=== PATIENT | female | born 1945 | race Asian ===

== ENCOUNTER 2016-06-13 09:57 | Inpatient (IN) | payer MEDICARE, OTHER ==
[~2016-06-13] VITALS: Ht 167.6 cm; Wt 61.0 kg
--- NOTE | 2016-06-13 10:21 | NUR ---
PT BIB [facility] FOR GENERALIZED WEAKNESS, PER MEDIC PT HAS NO PAST MEDICAL HISTORY AND IS NOT ON ANY HOME MEDS, MEDIC REPORTS FAMILY IS CONCERNED DUE TO PT NOT "TAKING HER WALK TODAY, USUALLY THE PATIENT TAKES A MORNING WALK EVERY DAY" PER MEDIC PT HAS HAD GENERALIZED WEAKNESS X 3 WEEKS AND WAS SEEN BY PMD YESTERDAY WITH DIAGNOSIS OF FLU LIKE SX, BLOOD GLUCOSE WEIGH BOX TENDER 101, PT AAOX4, RESP EVEN BUT SLIGHTLY TACHYPNEAC, PT REPORTS 6/10 PAIN TO LEFT HIP, DENIES RECENT TRAUMA FALL OR INJURY, PT HAS COUGH WITH YELLOW COLORED PHLEGM, PT IN NO ACUTE DISTRESS, PENDING MSE, WILL CONTINUE TO MONITOR
--- NOTE | 2016-06-13 10:40 | NUR ---
PT FRIEND AT BEDSIDE, DR. PONCE AT BEDSIDE FOR MSE, PER FRIEND "SHE DID NOT EAT FOR 2 DAYS SINCE SHE HAD TO GO SEE THE DOCTOR YESTERDAY, SHE HAS A COUGH VERY MUCH X 3 WEEKS"
--- NOTE | 2016-06-13 10:55 | NUR ---
LAB AT BEDSIDE FOR BLOOD DRAW
[2016-06-13 11:18] LABS: BASOPHIL % 0.3 % (0-2)
[2016-06-13 11:25] LABS: CALCIUM 8.2 mg/dL (8.5-10.1); CARBON DIOXIDE 30.1 mmol/L (21-32); CHLORIDE SERUM 103 mmol/L (98-107); GLUCOSE SERUM 117 mg/dL (74-106); POTASSIUM SERUM 3.6 mmol/L (3.5-5.1); SODIUM SERUM 140 mmol/L (136-145)
[2016-06-13 11:29] LABS: PLATELET COUNT 92 x10^3mcL (130-400); RED CELL DISTRIBUTION WIDTH 14.9 % (11.5-14.5)
--- NOTE | 2016-06-13 11:30 | NUR ---
BREATHING TREATMENT COMPLETED AT THIS TIME, PT O2 SAT 98% AT THIS TIME ON RA
--- NOTE | 2016-06-13 11:33 | NUR ---
PER PT HER EMERGENCY CONTACT IS HER GRANDSON RONALDO
[2016-06-13 11:41] LABS: ALKALINE PHOSPHATASE 68 U/L (46-116); ALT/SGPT 13 U/L (14-59); AMYLASE 86 U/L (25-115); AST/SGOT 25 U/L (15-37); BILIRUBIN TOTAL 2.5 mg/dL (0.20-1.00); CHOLESTEROL 143 mg/dL (<200); LIPASE 95 IU/L (73-393); T4(THYROXINE) 5.9 ug/dL (4.7-13.3); TOTAL PROTEIN, SERUM 6.8 g/dL (6.4-8.2)
[2016-06-13 11:42] LABS: ALBUMIN 2.7 g/dL (3.4-5.0); HDL CHOLESTEROL 73 mg/dL (40-60)
--- NOTE | 2016-06-13 11:47 | NUR ---
MEDICATION ADMINISTERED PER MD ORDER, PLEASE SEE EMAR, PT TOLERATED WELL
--- NOTE | 2016-06-13 12:08 | NUR ---
2 ATTEMPTS IN PERFORMING STRAIGHT CATH WITH ASEPTIC TECHNIQUE BUT NO URINE RETURN, DR. PONCE MADE AWARE
--- NOTE | 2016-06-13 12:58 | NUR ---
STRAIGHT CATH PERFORMED PER DR. PONCE'S ORDER WITH ASEPTIC TECHNIQUE, CLEAR DARK YELLOW URINE COLLECTED, PT TOLERATED WELL, PT BACK IN A POSITION OF COMFORT IN BED, RESP EVEN AND UNLABORED, PT IN NO ACUTE DISTRESS, VSS, URINE DIPPED AND SENT TO LAB, CALL LIGHT WITHIN REACH, WILL CONTINUE TO MONITOR PT
[2016-06-13 13:26] LABS: microscopic required? YES; urine erythrocyte 2+ (NEGATIVE)
--- NOTE | 2016-06-13 14:34 | NUR ---
PT RESTING IN BED IN A POSITION OF COMFORT WITH EYES CLOSED, RESP EVEN AND UNLABORED, VISIBLE RISE AND FALL OF CHEST NOTED, PT IN NO ACUTE DISTRESS, IVF CURRENTLY INFSING AT THIS TIME, CALL LIGHT WITHIN REACH, WILL CONTINUE TO MONITOR
--- NOTE | 2016-06-13 15:01 | NUR ---
[facility]SA SWAB COLLECTED AND SENT TO LAB
--- NOTE | 2016-06-13 15:38 | NUR ---
REPORT GIVEN TO RENEE GUADARRAMA TELE FLOOR TO ASSUME CARE OF PT AFTER TRANSPORT
[2016-06-13 15:42] LABS: FREE T4 1.92 ng/dL (0.76-1.46); FREE THYROXINE INDEX 2.5 ug/dL (1.4-4.5); T4(THYROXINE) 6.2 ug/dL (4.7-13.3)
[2016-06-13 15:43] LABS: T3 TOTAL 0.69 ng/mL
--- NOTE | 2016-06-13 15:45 | NUR ---
RECEIVED PT FROM ED VIA [facility]. CAME IN DUE TO WEAKNESS, COUGH AND UNABLE TO SLEEP FOR 3 WEEKS. AAOX4. C/O THROBBING HEADACHE. STATED THAT SHE HAS PRODUCTIVE COUGH AT TIMES, ABLE TO EXPECTORATE YELLOW SPUTUM. DENIES CHEST PAIN/PRESSURE, NSR ON THE MONITOR. DENIES ABDOMINAL DISCOMFORT AT THIS TIME. URINE INCONTINENT. GENERALIZED WEAKNESS NOTED. SIDE RAILS UPX2. CALL LIGHT ON REACH. PRIMARY NURSE THIERRY AT BEDSIDE
[2016-06-13 16:09] VITALS: BP 136/83
[2016-06-13 16:12] VITALS: Ht 167.6 cm; Wt 61.0 kg
--- NOTE | 2016-06-13 16:42 | NUR ---
CAROTID US IN PROGRESS. PATIENT NOTED TO HAVE VERY FREQUENT COUGH WITH YELLOWISH SPUTUM. IVF INFUSING WELL ORDERED. WILL CONTINUE TO [facility]. PATIENT IS NPO AT THIS TIME.
[2016-06-13 17:44] VITALS: BP 136/83
--- NOTE | 2016-06-13 18:24 | NUR ---
PATIENT REMAINS IN BED. CAROTID US DONE AND US OF ABD AND RENAL INCLUDING BLADDER DONE. PATIENT CONTINUES TO COUGH. I.S. AT BEDSIDE. SCD'S IN PLACE. PATIENT TO HAVE A CT OF HEAD DONE THIS EVENING. WILL CONTINUE TO MONITOR.
[2016-06-13 18:45] LABS: BILIRUBIN DIRECT 0.85 mg/dL (0.0-0.2); BILIRUBIN TOTAL 1.83 mg/dL (0.20-1.00)
--- NOTE | 2016-06-13 18:53 | NUR ---
PATIENT IS SITTING UP IN BED EATING DINNER TRAY AT THIS TIME.
--- NOTE | 2016-06-13 19:56 | NUR ---
AWAKE AND ALERT, EATING DINNER. BECAME SHORT OF BREATH WHEN TALKING. ON 2LPM OF O2 VIA NC. O2 SAT 96-97%. ON HIGH FOWLERS. SCDS TO BLE. IVF OF NS AT 90ML/HR. GENERALIZED WEAKNESS. LUNG SOUNDS DIMINISHED TO BASES. GRANDDAUGHTER AT BEDSIDE.
--- NOTE | 2016-06-13 21:13 | NUR ---
IV TO LEFT AC INFILTRATED. REMOVED. NEW IV, 20 G INSERTED TO RIGHT FOREARM.
--- NOTE | 2016-06-13 21:15 | NUR ---
NEW ORDER FOR CT ABD/PELVIS WITH IV CONTRAST. NEW 20G IV INSERTED TO RIGHT FOREARM, PT DENIES HAVING ALLERGIES TO SEAFOOD OR IODINE.
[2016-06-13 21:36] VITALS: BP 140/66
--- NOTE | 2016-06-13 22:51 | NUR ---
BACK FROM CT, PLACED BACK ON IVF OF NS AT 90ML/HR.
--- NOTE | 2016-06-13 23:28 | NUR ---
EYES CLOSED, BREATHING EVEN AND UNLABORED. UPPER SIDE RAILS KEPT RAISED, BED IN LOWEST POSITION. CALL LIGHT WITHIN EASY REACH.
[2016-06-14] VITALS (7 sets, daily range): BP systolic 103–172; BP diastolic 43–85
--- NOTE | 2016-06-14 02:34 | NUR ---
HAVING NAUSEA AND VOMITTED. ZOFRAN 4MG ADMINISTERED SLOW IVP. STATED HAVING SOME HEAVINESS TO CHEST, PT HAVING EXPIRATORY WHEEZES, PAGED RESP THERAPIST. RT. VITAL SIGNS, BP 172/85, O2 SAT 99% ON 2LPM OF O2 VIA NC, HI 77, 97.1F, 20/MIN. SINUS RHYTHM ON TELE, ASSISTED TO BEDSIDE COMMODE. VOIDED WELL. RESP THERAPIST CAME IN TO PROVIDE BREATHING TREATMENT.
--- NOTE | 2016-06-14 02:52 | NUR ---
PAGED DR. PATEL
--- NOTE | 2016-06-14 03:29 | NUR ---
DR PATEL AWARE OF BP 166/82. NO FURTHER ORDERS AT THIS TIME. WILL CONTINUE TO MONITOR.
--- NOTE | 2016-06-14 03:37 | NUR ---
DR. PATEL CALLED BACK, INFORMED BP WAS 172/85, RECHECKED 166/82. NO NEW ORDERS AT THIS TIME.
--- NOTE | 2016-06-14 03:38 | NUR ---
LATE ENTRY: 0253H - STATED FEELING BETTER. HOB KEPT ELEVATED 30 DEG.
--- NOTE | 2016-06-14 05:59 | NUR ---
EYES CLOSED, BREATHING EVEN AND UNLABORED. CALL LIGHT WITHIN EASY REACH.
[2016-06-14 06:34] LABS: CALCIUM 7.9 mg/dL (8.5-10.1); CHLORIDE SERUM 109 mmol/L (98-107); GLUCOSE SERUM 147 mg/dL (74-106); MAGNESIUM 1.7 mg/dL (1.8-2.4); SODIUM SERUM 143 mmol/L (136-145)
[2016-06-14 06:41] LABS: BASOPHIL % 0.3 % (0-2); RED CELL DISTRIBUTION WIDTH 14.5 % (11.5-14.5)
[2016-06-14 06:42] LABS: PLATELET COUNT 84 x10^3mcL (130-400)
--- NOTE | 2016-06-14 08:00 | NUR ---
PATIENT IS AWAKE ALERT AND ORIENTED X4. TELE 13 SR. PULSES EQUAL BILATERAL NO EDEMA NOTED. SCDS IN PLACE. LUNGS CTA, NON PRODUCTIVE DRY COUGH. BOWEL SOUNDS ACTIVE IN ALL 4 QUADRANTS NO COMPLAINTS OF N/V. BRP WITH ASSIST, INCONTINENT AT TIMES. GENERALIZED WEAKNESS. SKIN IS CDI. NO COMPLAINTS OF PAIN AT THIS TIME. IV TO THE RFA, SITE WNL. PT IS CALM AND COOPERATIVE WITH CARE. CALL LIGHT IN REACH WILL CONTINUE TO MONITOR.
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
--- NOTE | 2016-06-14 15:12 | NUR ---
PT ASLEEP IN BED EVEN UNLABORED RESPIRATIONS, NO SIGNS OF DISTRESS. CALL LIGHT IN REACH.
--- NOTE | 2016-06-14 15:33 | NUR ---
DR BALBUENA IN TO SEE PT, INFORMED HER OF THE RISKS ASSOCIATED WITHTHE PROCEDURE. ALL QUESTIONS ANSWERED. PT VERBALIZED UNDERSTANDING. CONSENTS SIGNED AND IN THE CHART.
--- NOTE | 2016-06-14 19:01 | NUR ---
PT RESTING COMFORTABLY IN BED NO SIGNS OF DISTRESS CALL LIGHT IN REACH FAMILY AT BEDSIDE. WILL CONTINUE TO MONITOR.
--- NOTE | 2016-06-14 19:45 | NUR ---
AAO X 4. SPEECH CLEAR AND APPROPRIATE. HOB ELEVATED 45 DEG. UPPER SIDE RAILS IN RAISED POSITION. CALL LIGHT WITHIN EASY REACH. BREATHING EVEN AND UNLABORED. BUT STATED HAVING SHORTNESS OF BREATH ON EXERTION. RR 18/MIN. O2 SAT 98% ON ROOM AIR. SINUS RHYTHM ON TELE. IVF OF NS AT 90ML/HR. DENIES HAVING PAIN AT THIS TIME.
--- NOTE | 2016-06-14 20:33 | NUR ---
PT EVAL NOTES [id number] Patient is a 70 (possibly 89 y/o per patient) admitted with gen weakness. 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 Prec: Fall risk, monitor vitals S: Patient cleared by RN, and patient agreeable to PT POC as best able. Denied any pain. O: Patient appears a/o, educated on PT POC/safety with fair return understanding. BP monitored for orthostatics supine 110/58/75, sit 119/65/72, stand 120/65/75, 3L O2 via NC with SpO2 96% with noted SOB at rest and upon exertion, educated on PLB/ECT with fair return understanding. Bed mobility supine<>sit/rolling: mod assist Transfers sit<>stand: mod assist Gait: 5 sidesteps w/ pregait activity as bedside. Patient demo unsteady gait with limited activity hesham. Patient assisted BTB with mod assist, call light in hand, all lines in place, nursing aware. A: PT eval completed. Patient presents with gen weakness and gait instability. Demo fair activity hesham, fall risk, and fatigues quickly with noted SOB. Patient will benefit from further skilled PT, good rehab potential. Recomm back home to [facility] with cont caregiver assist, already has all DME at home, and HHPT for home safety eval as needed. P: Patient to be seen per PT POC, once daily 5x/wk x 1 wk for ther ex/activity, gait trng, and patient/fam/caregiver edu. Cont with PT POC as hesham/safe. [id number], [id number] FR 14
--- NOTE | 2016-06-15 00:40 | NUR ---
EYES CLOSED, BREATHING EVEN AND UNLABORED. HOB KEPT ELEVATED 30 DEG. UPPER SIDE RAILS KEPT RAISED, CALL LIGHT WITHIN EASY REACH. NO COUGHING NOTED AT THIS TIME. SINUS RHYTHM ON TELE.
--- NOTE | 2016-06-15 03:55 | NUR ---
ASSISTED TO BEDSIDE COMMODE BY JOHNNIE PAEZ. PT PASSED MODERATE AMOUNT OF FORMED STOOL.
[2016-06-15 05:50] LABS: BASOPHIL % 0.1 % (0-2)
[2016-06-15 05:55] LABS: PLATELET COUNT 96 x10^3mcL (130-400)
[2016-06-15 06:09] LABS: CALCIUM 8.6 mg/dL (8.5-10.1); CARBON DIOXIDE 26.4 mmol/L (21-32); CHLORIDE SERUM 110 mmol/L (98-107); CREATININE SERUM 1.3 mg/dL (0.6-1.0); GLUCOSE SERUM 80 mg/dL (74-106); MAGNESIUM 1.8 mg/dL (1.8-2.4); PHOSPHOROUS 3.3 mg/dL (2.5-4.9); POTASSIUM SERUM 4.3 mmol/L (3.5-5.1); SODIUM SERUM 145 mmol/L (136-145)
[2016-06-15 06:12] VITALS: BP 110/47
--- NOTE | 2016-06-15 06:18 | NUR ---
EYES CLOSED, BREATHING EVEN AND UNLABORED. OCCASSIONAL COUGHING NOTED. IVF OF NS AT 90ML/HR. HOB KEPT ELEVATED 30 DEG.
--- NOTE | 2016-06-15 07:45 | NUR ---
RECIEVED PT. AWAKE,ALERT NOTED OLD IV ACCESS IN RT. FA WAS INFILTRATED . NOTED REDNESS AND RASHES TO AMITA. UPPER AND LOWER EXT.THIGH ,BUTTOKS ,CHEST AND BACK.DR. MUIR NOTIFIED AND MADE AWARE.
--- NOTE | 2016-06-15 08:00 | NUR ---
PT. ABLE TO AMBULATE IN THE BATHROOM W/ ASSIST. W/ WALKER GASPER. WELL. UP IN CHAIR AT BEDSIDE.CALL LIGHT W/ IN REACH. DENIES ANY PAIN NO SOB NOTED. CONT. IV FLUIDS ORDERED.
--- NOTE | 2016-06-15 08:20 | NUR ---
DR ARIAS CAME WITH OTHER MEDICAL STAFF AND MADE MORNING ROUNDS AND UPDATED PATIENT PLAN OF CARE
--- NOTE | 2016-06-15 08:45 | NUR ---
PATIENT KEPT NPO TODAY FOR EGD. DR. Tapan BALBUENA CAME IN AND SPOKE TO PATIENT REGARDING THE EGD PROCEDURE AND PATIENT VERBALIZED UNDERSTAND OF THE PROCEDURE TO BE DONE. PATIENT SIGNED CONSENT.
--- NOTE | 2016-06-15 10:00 | NUR ---
PATIENT WENT DOWN FOR THE EGD VIA BED.
--- NOTE | 2016-06-15 10:00 | NUR ---
RE- INSERTED NEW IV ACCESS #24 GAUGE NEEDLE IN LEFT HAND DONE IN GI LAB IN GI LAB.
--- NOTE | 2016-06-15 11:00 | NUR ---
WBC 13.[address] MUIR W/ ORDERS RECIEVED.
--- NOTE | 2016-06-15 11:45 | NUR ---
PATIENT BACK FROM EGD VIA BED. AWAKE AND ALERT. DENIES ANY PAIN. PATIENT MADE COMFORTABLE IN BED. ON O2 AT 2L ON NC. VITAL SIGNS ARE STABLE. NO ACUTE DISTRESS NOTED. S/P EGD RESULTS ARE NO VARICES. SCARRING PREPYLORIC NEGATIVE RESULTS.
--- NOTE | 2016-06-15 11:57 | NUR ---
PATIENT ALERT AND ORIENTED X4. NOTED IV ACCESS WAS INFILTRATED IN THE RIGHT FOREARM. REDNESS NOTED ON HER [place] AND BILATERAL UPPER EXTREMITIES AND UPPER LOWER EXTREMITIES. PULSES PALPABLE AND NO EDEMA NOTED. CLEAR LUNG SOUNDS AND PATIENT HAS A NONPRODUCTIVE COUGH. REQUIRES ASSISTANCE WITH ADL'S. AMBULATES WITH ASSISTANCE WITH WALKER AND REPORTS GENERALIZED WEAKENESS. PATIENT REPORTS NUMBNESS ON BOTH HANDS AND HEAD. PATIENT IS ABLE TO MOVE BILATERALLY UPPER EXTREMITY WITYH GOOD HAND STITCH WELDER. NO RESOPIRATORY DISTRESS NOTED. WILL CONTINUE PLAN OF CARE.
[2016-06-15 13:50] VITALS: BP 123/49
[2016-06-15 17:39] VITALS: BP 109/44
--- NOTE | 2016-06-15 17:47 | NUR ---
PT. ABLE TO AMBULATE IN THE BATHROOM AND VOIDING WELL.W/ ASSIST. W/ WALKER DENIES ANY PAIN NOT ACUTE DISTRESS NOTED.CALL LIGHT W/ IN REACH.
--- NOTE | 2016-06-15 19:33 | NUR ---
AAO X 4. SPEECH CLEAR AND APPROPRIATE. HOB ELEVATED 30 DEG. CALL LIGHT WITHIN EASY REACH. BREATHING EVEN AND UNLABORED ON ROOM AIR. NO COUGHING NOTED AT THIS TIME. RASH LIKE REDNESS TO MID ARMS, THIGH, GROIN AND BUTTOCKS, DENIES HAVING ITCHINESS, BUT STATED HAVING PAIN TO AREAS OF REDNESS. AMBULATORY WITH ASSISTANCE. IVF OF NS AT 90ML/HR.
--- NOTE | 2016-06-15 20:39 | NUR ---
DECREASED IVF TO 30ML/HR PER [facility] ORDERS
[2016-06-15 21:11] VITALS: BP 125/68
--- NOTE | 2016-06-16 00:52 | NUR ---
EYES CLOSED, BREATHING EVEN AND UNLABORED. NO COUGHING NOTED AT THIS TIME. HOB KEPT ELEVATED 30 DEG. CALL LIGHT WITHIN EASY REACH. SINUS RHYTHM ON TELE.
--- NOTE | 2016-06-16 04:47 | NUR ---
STILL WITH REDNESS TO MID ARM, BUTTOCKS, THIGHS. PHOTODOCUMENTED. DENIES HAVING ITCHINESS.
--- NOTE | 2016-06-16 04:47 | NUR ---
DISCONTINUED TELEMETRY PER ORDER, TELEMETER RETURNED TO MONITOR STATION.
[2016-06-16 05:31] VITALS: BP 123/60
--- NOTE | 2016-06-16 06:08 | NUR ---
EYES CLOSED, EASILY AWAKENED. BREATHING EVEN AND UNLABORED. IVF OF NS AT 30ML/HR.
[2016-06-16 07:06] LABS: BASOPHIL % 0.1 % (0-2)
[2016-06-16 07:08] LABS: PLATELET COUNT 102 x10^3mcL (130-400)
[2016-06-16 07:12] LABS: CALCIUM 8.5 mg/dL (8.5-10.1); CARBON DIOXIDE 26.3 mmol/L (21-32); CHLORIDE SERUM 111 mmol/L (98-107); CREATININE SERUM 1.1 mg/dL (0.6-1.0); GLUCOSE SERUM 153 mg/dL (74-106); POTASSIUM SERUM 4.8 mmol/L (3.5-5.1); SODIUM SERUM 143 mmol/L (136-145)
--- NOTE | 2016-06-16 07:19 | NUR ---
EYES CLOSED, EASILY AWAKENED. STATED STILL FEELING WEAK. BREATHING EVEN AND UNLABORED. ASKED ASSISTANCE TO LEAVE MESSAGE TO HER GRANDSON TO CALL HER OR HOSPITAL. ENDORSED TO NURSE LEY
--- NOTE | 2016-06-16 07:50 | NUR ---
AT 0720 - RECEIVED PATIENT FROM NIGHT NURSE. PATIENT AWAKE, ALERT AND APPEARS ORIENTED. NO C/O PAIN BUT PATIENT C/O GENERALIZED WEAKNESS. IV INFUSING NS AT 30ML. AT 0730 - SAT UP IN BED FOR BREAKFAST. RECEIVED CALL FROM PATIENT'S GRAND-SON - RONALDO HOBBS TEL: [phone] UPDATED ON PATIENT, WILL REQUEST DOCTOR TO CALL HIM.
[2016-06-16 10:00] VITALS: BP 150/72
--- NOTE | 2016-06-16 12:19 | NUR ---
AT 0815 - SEEN BY DR SEPULVEDA DURING MORNING ROUNDS. MEDICAL TEAM DOCTORS, IRASEMA FERRIS AND MYSELF PRIMARY NURSE ALSO PRESENT. DR YORK SPOKE WITH PATIENT THI. PLAN TO STAY IN HOSPITAL TODAY AND PLAN TO DC HOME TOMORROW. DR KWON GIVEN PATIENT'S GRAND-SON'S TELEPHONE NUMBER DESCRIBED ABOVE. AT 1100 - PATIENT SITTING OUT OF BED IN CHAIR. AT 1135 - HAS BEEN UP, AMBULATED WITH PHYISCAL THERAPY. AT 1210 - PATIENT BACK IN BED.
--- NOTE | 2016-06-16 13:34 | NUR ---
RECEIVED CALL FROM PATIENT'S GRAND-SON. DR KWON ON UNIT AT THE TIME; HE SPOKE WITH GRAND-SON PER PHONE.
--- NOTE | 2016-06-16 14:46 | NUR ---
PT NOTES TIME: 9227-4532 TE5',TA10',GT23',PVE((1)STANDBY SAFETY) S:CHART REVIEWED AND CLEARED FOR PT BY RN. PATIENT HAS JUST BEEN ASSISTED BACK TO BE BY NURSING. PATIENT EAGER TO PARTICIPATE IN THERAPY, IV LINE INTACT. NO PAIN OR SOB EXPRESSED BY PATIENT. O:BED: MIN SUPINE<->SIT VIA LOG ROLL WITH VC'S AND TC'S FOR PROPER SEQUENCING AND PACING. TRANSFER: MIN SIT<->STAND WITH FWW, 1 REMINDER ON PROPER HAND PLACEMENT AND PUSH OFF FROM BED/FWW. NO DIZZINESS EXPRESSED OR INCREASED PAIN. GAIT: MIN/CGA FWW 22'x2 WITH 1 SEATED REST BREAK FOR ENERGY CONSERVATION. NO PAIN EXPRESSED, ONLY FATIGUE 7/10 BASED ON CHIARA RPE SCALE. PATIENT MAINTAINS SLOW, BUT STEADY ROXANA WITH NBOS, SHORTEN STEP LENGTH AND MILD KYPHOTIC POSTURE. PATIENT ABLE TO CORRECT POSTURE WITH VC'S PROVIDED. 2ND PT STAFF ON STANDBY FOR SAFETY DURING GAIT (PVE). TE: SEATED KNEE EXT/FLEX WITH ANKLE DF/PF, SCAPULAR RETRACTION/PROTRACTION IN SITTING TO IMPROVE SITTING POSTURE (ALL TOLERATED) PATIENT EDUCATED ON HEP, PACING, ENERGY CONSERVATION, TRANSFERS AND SAFETY WITH VERBAL UNDERSTANDING. PATIENT RETURNED SAFELY AND MADE COMFORTABLE IN BED WITH ALL LINES INTACT, TRAY AND CALL LIGHT IN REACH. PATIENT COOPERATIVE AND APPRECIATIVE OF PT CARE, RN MADE AWARE. P:CONT WITH POC, PROGRESS DISCUSSED WITH PRIMARY PT.
--- NOTE | 2016-06-16 17:45 | NUR ---
PATIENT BACK FROM RADIOLOGY POST CT OF CHEST. SITTING UP IN BED FOR DINNER.
[2016-06-16 18:00] VITALS: BP 117/57
--- NOTE | 2016-06-16 19:02 | NUR ---
PATIENT AWAKE, ALERT AND ORIENTED. NO C/O PAIN. IV REMAINS AT 30ML/HR NS. EATING WELL. WILL ENDORSE CARE TO NIGHT NURSE.
--- NOTE | 2016-06-16 20:00 | NUR ---
RECEIVED PT IN BED, ALERT AND ORIENTED. ABLE TO VERBALIZE NEEDS. DENIES HEADACHE/DIZZINESS. RESP. EVEN AND UNLABORED. ON ROOM AIR, LUNGS SOUNDS SIGHTLY DIM. ON RT PROTOCOL. NO DISTRESS NOTED. NO TELE , DENIES CHEST PAIN OR PRESSURE. IVF NS AT 30ML/HR, INTACT AND INFUSING VIA LT HAND, SITE CLEAR. REDDISH RASH ALL OVER , KIMI. BUE. DENIES ITHCHING . NEEDS ASSIST. WITH AMBULATION. VOIDING FREELY. ASSISTED WITH HS CARE. CALL LIGHT WITHIN REACH. WILL CONTINUE TO MONITOR.
[2016-06-16 21:37] VITALS: BP 147/58
--- NOTE | 2016-06-17 02:23 | NUR ---
SLEEPING, EASILY AROUSABLE. NO DISTRESS NOTED. WILL CONTINUE TO MONITOR.
[2016-06-17 05:55] VITALS: BP 140/71
--- NOTE | 2016-06-17 06:17 | NUR ---
AFEBRILE AND VITAL SIGNS STABLE. DENIES CP OR ANY DISCOMFORT. SLEPT WELL. NO COMPLAINTS NOTED. RESP. EVEN AND UNLABORED. NO DISTRESS NOTED. IV SITE LEAKING, DISCONT. NEW IV SITE RESTARTED ON LT HAND WITH #24G ANGIO. NS AT 30ML/HR, INFUSING. KEPT COMFORTABLE. HAD X1 LG SOFT BM. WILL CONTINUE TO MONITOR.
[2016-06-17 06:37] LABS: CALCIUM 8.7 mg/dL (8.5-10.1); CARBON DIOXIDE 26.2 mmol/L (21-32); CHLORIDE SERUM 109 mmol/L (98-107); GLUCOSE SERUM 102 mg/dL (74-106); MAGNESIUM 1.9 mg/dL (1.8-2.4); PHOSPHOROUS 3.3 mg/dL (2.5-4.9); POTASSIUM SERUM 4.4 mmol/L (3.5-5.1); SODIUM SERUM 141 mmol/L (136-145)
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
[2016-06-17 07:42] LABS: BASOPHIL % 0.7 % (0-2); RED CELL DISTRIBUTION WIDTH 14.4 % (11.5-14.5)
[2016-06-17 07:43] LABS: PLATELET COUNT 103 x10^3mcL (130-400)
--- NOTE | 2016-06-17 09:06 | NUR ---
ABLE TO TAKE ALL AM PO MEDS WITHOUT SWALLOW DELAY, N&V, DENIES SOB, CALL LIGHT WITHIN REACH, WILL CONTINUE TO PROVIDE CARE.
[2016-06-17 09:22] VITALS: BP 170/77
--- NOTE | 2016-06-17 11:40 | NUR ---
FAM AT BEDSIDE. PT C/O COUGH, ANTITUSSIVE ADMIN ORDERED, DENIES SOB, O2 SATS 97% ORA, RESPIRATORY THERAPY ON THE CASE. CALL LIGHT WITHIN REACH, WILL CONTINUE TO PROVIDE CARE.
--- NOTE | 2016-06-17 13:11 | NUR ---
ABLE TO TOLERATE LUNCH WITHOUT GI DISTRESS, CALL LIGHT WITHIN REACH, WILL CONTINUE TO PROVIDE CARE.
[2016-06-17 14:13] VITALS: BP 111/44
--- NOTE | 2016-06-17 14:50 | NUR ---
PT NOTES TIME: [id number] TE10'.TA13',GT15',PVE((1)1ST ATTEMPT) S:CHART REVIEWED AND CLEARED FOR PT BY RN. PATIENT IN HIGH SAN POSITION RESTING WITH CM (LEEANNE) AT BEDSIDE SPEAKING WITH PATIENT. WILL RETURN AT LATER TIME. RETURNED TO PATIENTS ROOM AND PATIENT HAVING BREATHING TREATMENT (PVE). RETURNED TO PATIENTS ROOM TO RESUME THERAPY AND IS EAGER TO PARTICIPATE IN THERAPY. NO PAIN EXPRESSED, BUT STATES, "I'M SO WEAK AND TIRED, I DIDN'T SLEEP WELL LAST NIGHT". PATIENT HOWEVER STILL EAGER TO PARTICIPATE. O:BED: MIN SUPINE<->SIT VIA LONG SIT PIVOT TRANSFER WITH VC'S PROVIDED TO SEQUENCING AND COMPLETE. BP 112/50, HR 85 SPO2 ON RA 92% TRANSFER: MIN SIT<->STAND WITH FWW AND FEW REMINDERS ON PROPER HAND PLACEMENT/SEQUENCING WITH CORRECT HAND PLACEMENT DURING PUSHOFF. BP IN SITTING. GAIT: MIN/CGA FWW 20'x2 WITH 1 SEATED REST BREAK FOR ENERGY CONSERVATION. BP IN SITTING POST GAIT 112/54, HR 85 SPO2 ON RA 94%. TE: ANKLE ROM IN ALL PLANES, UE ROM IN ALL PLANES, GLUTE SETS, SEATED KNEE EXT/FLEX WITH MARCHES. (ALL TOLERATED TO IMPROVE CIRCULATION AND STRENGTH/ENDURANCE). OCCASIONAL REMINDERS ON PROPER EXECUTION DURING HEP. PATIENT EDUCATED ON PROPER TRANSFER SEQUENCING, POSTURAL AWARENESS, ENERGY CONSERVATION WITH GOOD RETURN DEMONSTRATION. PATIENT RETURNED SAFELY AND MADE COMFORTABLE IN BED WITH ALL LINES INTACT, TRAY AND CALL LIGHT IN REACH. PATIENT COOPERATIVE AND APPRECIATIVE OF PT CARE, RN MADE AWARE. P:CONT WITH POC, PROGRESS DISCUSSED WITH PRIMARY PT.
--- NOTE | 2016-06-17 19:12 | NUR ---
ABLE TO WORK WITH PHYSICAL THERAPY, HAS BEEN TOLERATING MEALS WITHOUT GI DISTRESS, CONTINUES TO C/O COUGH, ANTITUSSIVE ADMIN ORDERED, RT IS ON THE CASE, PT WOULD LIKE TO TRANSFER TO SNF ONCE DISCHARGED, NO OTHER SIGNIFICANT CHANGES NOTED, WILL ENDORSE CARE TO NIGHT NURSE.
--- NOTE | 2016-06-17 19:50 | NUR ---
PT RESTING IN BED ON RT SIDE, AAOX4 WITH NO C/O PAIN AT THIS TIME. BREATH SOUNDS CLEAR BILATERALLY. ABDOMEN SOFT WITH ACTIVE BOWEL SOUNDS. PULSES PRESENT WITH NO EDEMA NOTED. REDNESS NOTED TO PERIAREA AND BUE. CALL LIGHT WITHIN REACH.
[2016-06-17 20:39] VITALS: BP 107/52
--- NOTE | 2016-06-17 22:00 | NUR ---
REPORT TAKEN FROM RENEE COELLO, ALL CARE ENDORSSED.
--- NOTE | 2016-06-17 22:48 | NUR ---
PT IS RESTING IN BED VERBALLY ARROUSSABLE. PT IS A/O X4Q. CLEAR SPEECH. FOLLOWS COMAND. RESP IS EVEN AND UNLABORED.RA. BOWEL SOUND ACTIVE X4Q. NO EDEMA NOTED. SELF TURNS. BSC WITH MINIMAL ASSISST. SAFETY IN PLACE. CALL LIGHT WITHIN REACH. WILL CONTINE TO MONITOR.
--- NOTE | 2016-06-17 22:58 | NUR ---
ALL MEDS GIVEN. PT GASPER WELL. WILL CONTINUE TO MONITOR.
--- NOTE | 2016-06-18 02:06 | NUR ---
RECHECK WITH PT. PT IS SLEEPING AT THIS TIME. NO DISTRESS NOTED. WILL CONTINUE TO MONITOR.
[2016-06-18 05:03] VITALS: BP 143/69
[2016-06-18 06:10] LABS: BASOPHIL % 0.5 % (0-2)
[2016-06-18 06:25] LABS: CALCIUM 8.2 mg/dL (8.5-10.1); CARBON DIOXIDE 33.2 mmol/L (21-32); CHLORIDE SERUM 108 mmol/L (98-107); GLUCOSE SERUM 73 mg/dL (74-106); MAGNESIUM 1.7 mg/dL (1.8-2.4); PHOSPHOROUS 4.4 mg/dL (2.5-4.9); POTASSIUM SERUM 4.2 mmol/L (3.5-5.1); SODIUM SERUM 143 mmol/L (136-145)
--- NOTE | 2016-06-18 06:38 | NUR ---
PT SLEPT THE NIGHT COMFORTABLY. PT DENIES ANY PAIN OR DISTRESS. ALL PT NEEDS ATTENDED. SPONGE BATH GIVEN. PT IS CDI. WILL ENDORSE THE CARE TO DAY NURSE.
[2016-06-18 06:39] LABS: PLATELET COUNT 125 x10^3mcL (130-400); RED CELL DISTRIBUTION WIDTH 14.6 % (11.5-14.5)
--- NOTE | 2016-06-18 06:53 | NUR ---
MG 1.[address] SHETH AND MADE HIM AWARE.
--- NOTE | 2016-06-18 07:26 | NUR ---
REPORT GIVEN TO THIERRY AT PT BEDSIDE, ALL CARE ENDORSSED.
--- NOTE | 2016-06-18 07:30 | NUR ---
PATIENT IS SITTING UP IN BED, ALERT ORIENTED, SPEAKS IN A WHISPER. NOTED TO BE COUGHING UP THICK WHITE MUCOUS AT THIS TIME. WILL MEDICATE WITH ROBITUSSIN ORDERED. RESP EVEN AND UNLABORED, LUNGS DIMINISHED WITH OCCAS EXP WHEEZING NOTED. I.S. AT BEDSIDE AND PATIENT REMINDED TO USE 10X/HR WHILE AWAKE. HL PATIENT LEFT HAND. DENIES ANY PAIN OR DISCOMFORT. PATIENT HAS GENERALIZED WEAKNESS AND C/O FEELING TIRED AT THIS TIME. P.T. TO AMBULATE PATIENT THIS AM. WILL CONTINTUE TO MONITOR.
--- NOTE | 2016-06-18 08:10 | NUR ---
DR SEPULVEDA AND MEDICAL TEAM INTO SEE PATIENT AND DISCUSS PLAN OF CARE TO INCLUDE D/C HOME TODAY.
[2016-06-18 09:12] VITALS: BP 135/66
[2016-06-18 12:10] VITALS: BP 135/66
[2016-06-18] MEDS ORDERED: LAC PO (12:22)
[2016-06-18] MEDS ORDERED: LEVAQUIN750 MG PO (12:22)
[2016-06-18] MEDS ORDERED: PEPCID20 MG PO (12:22)
[2016-06-18] MEDS ORDERED: CLINDAMYCIN HC300 MG PO (12:22)
[2016-06-18 13:13] VITALS: BP 134/58
--- NOTE | 2016-06-18 13:48 | NUR ---
PATIENT READY FOR D/C HOME. DC'D. PRESCRIPTIONS AND FOLLOW UP INSTRUCTIONS GIVEN. PATIENT TO HAVE [employer]. PERSONAL BELONGINGS LIST SIGNED. CONDITION APPEARS STABLE.
--- NOTE | 2016-06-18 14:34 | NUR ---
PT NOTES CLEARED BY RN FOR P.T. TX. FIRST ATTEMPT (0940), PATIENT IS ASLEEP, BUT AROUSABLE. PATIENT IS REQUESTING TO BE FOLLOWED UP AT A LATER TIME W/ TX DUE TO FATIGUE & LACK OF SLEEP. PATIENT ENCOURAGED TO PARTICIPATE IN THERAPY & EDUCATED ON THE IMPORTANCE OF THERAPY. SECOND ATTEMPT (1340), PATIENT AWAKE & ALERT SITTING AT EOB ASSISTED BY FAMILY. PATIENT IS BEING D/C FROM THE HOSPITAL. EDUCATED PATIENT ON SAFETY FOR FALL PREVENTION W/ GOOD UNDERSTANDING. PRIMARY THERAPIST AWARE. PVE(2)
== END 2016-06-18 14:04 | disposition home health service (06) | DRG 177 ==
LOC: ED 09:57 → DU 14:47 → MU 14:47 → DU 15:48 → MU 06-15 16:53
PROVIDERS: Emergency Medicine; Family Medicine; Internal Medicine Gastroenterology; ADMIT Family Medicine
PROC: 0DB68ZX Excision of Stomach, Via Natural or Artificial Opening Endoscopic, Diagnostic (ICD-10-PCS; principal; 2016-06-15 10:00)
DX: J69.0 Pneumonitis due to inhalation of food and vomit (principal); J96.00 Acute respiratory failure, unspecified whether with hypoxia or hypercapnia; I50.41 Acute combined systolic (congestive) and diastolic (congestive) heart failure; N17.0 Acute kidney failure with tubular necrosis; E43 Unspecified severe protein-calorie malnutrition; I81 Portal vein thrombosis; I42.9 Cardiomyopathy, unspecified; E86.0 Dehydration; E83.42 Hypomagnesemia; R80.8 Other proteinuria; K27.9 Peptic ulcer, site unspecified, unspecified as acute or chronic, without hemorrhage or perforation; D64.9 Anemia, unspecified; R31.9 Hematuria, unspecified; E80.6 Other disorders of bilirubin metabolism; D69.6 Thrombocytopenia, unspecified; Z68.21 Body mass index [BMI] 21.0-21.9, adult
CPT/HCPCS: 36600; 43235; 83880; 84439; 94150; 97110-GP; 97116-GP; 97530-GP; J0696; J1200; J1610; J1956; J2250; J2310; J2405; J2920; J2930; J3010; J3490; J7030; J7613; J7620; J7633; J7644; Q0092; Q0163; Q9967

== ENCOUNTER 2016-06-28 15:12 | Inpatient (IN) | payer MEDICARE, OTHER ==
[~2016-06-28] VITALS: Ht 157.5 cm; Wt 60.1 kg
[~2016-06-28 15:12] MED LIST: CLINDAMYCIN HC300 MG PO; LAC PO; LEVAQUIN750 MG PO; PEPCID20 MG PO
[2016-06-28 15:57] LABS: BASOPHIL % 1.2 % (0-2); PLATELET COUNT 146 x10^3mcL (130-400)
[2016-06-28 16:02] LABS: CALCIUM 8.1 mg/dL (8.5-10.1); CARBON DIOXIDE 31.3 mmol/L (21-32); CHLORIDE SERUM 108 mmol/L (98-107); GLUCOSE SERUM 95 mg/dL (74-106); POTASSIUM SERUM 3.5 mmol/L (3.5-5.1); SODIUM SERUM 144 mmol/L (136-145)
[2016-06-28 16:05] LABS: RED CELL DISTRIBUTION WIDTH 14.6 % (11.5-14.5)
[2016-06-28 16:16] LABS: ALKALINE PHOSPHATASE 87 U/L (46-116); ALT/SGPT 14 U/L (14-59); AST/SGOT 25 U/L (15-37); C REACTIVE PROTEIN 1.9 mg/dL (<=0.9); TOTAL PROTEIN, SERUM 6.6 g/dL (6.4-8.2)
[2016-06-28 16:20] LABS: ALBUMIN 2.7 g/dL (3.4-5.0); T3 TOTAL 0.94 ng/mL
[2016-06-28 16:42] LABS: CK-MB 0.5 ng/mL (0-3.6)
[2016-06-28 17:17] LABS: MAGNESIUM 1.6 mg/dL (1.8-2.4); PHOSPHOROUS 2.9 mg/dL (2.5-4.9)
[2016-06-28 17:21] LABS: ERYTHROCYTE SED RATE 62 mm/hr (0-30)
[2016-06-28 17:33] LABS: FREE T4 5.16 ng/dL (0.76-1.46); FREE THYROXINE INDEX 2.7 ug/dL (1.4-4.5); T4(THYROXINE) 6.8 ug/dL (4.7-13.3)
[2016-06-28 18:43] VITALS: BP 122/45
[2016-06-28 19:50] VITALS: BP 134/68
[2016-06-28 21:18] VITALS: BP 132/59
[2016-06-29 05:57] VITALS: BP 140/63
[2016-06-29 06:55] LABS: CARBON DIOXIDE 29.7 mmol/L (21-32); CHLORIDE SERUM 110 mmol/L (98-107); CREATININE SERUM 0.9 mg/dL (0.6-1.0); GLUCOSE SERUM 90 mg/dL (74-106); MAGNESIUM 2.3 mg/dL (1.8-2.4); PHOSPHOROUS 3.5 mg/dL (2.5-4.9); POTASSIUM SERUM 3.6 mmol/L (3.5-5.1); SODIUM SERUM 145 mmol/L (136-145)
[2016-06-29 08:13] LABS: PLATELET COUNT 117 x10^3mcL (130-400); RED CELL DISTRIBUTION WIDTH 15.1 % (11.5-14.5)
[2016-06-29 09:23] VITALS: BP 157/65
[2016-06-29 10:42] LABS: MONOCYTE 6 % (0-7); SEGMENTED NEUTROPHILS 14 % (37-75); acanthocyte (spur cell) 1+; rbc morphology (normal/abnorm) ABNORMAL (NORMAL)
[2016-06-29 14:51] VITALS: BP 102/47
[2016-06-29 17:04] VITALS: BP 93/36
[2016-06-29 20:00] VITALS: BP 93/41
[2016-06-30 05:20] LABS: microscopic required? NO
[2016-06-30 05:41] VITALS: BP 107/52
[2016-06-30 05:42] LABS: UA SPECIFIC GRAVITY >=1.030 (1.005-1.035); urine erythrocyte NEGATIVE (NEGATIVE)
[2016-06-30 05:50] LABS: AMPHETAMINE QUAL UR NONE DETECTED (NEG <=1000)
[2016-06-30 09:13] VITALS: BP 82/58
[2016-06-30 13:21] VITALS: BP 127/50
[2016-06-30 20:00] VITALS: BP 80/30
[2016-06-30 21:20] VITALS: BP 100/46
[2016-07-01 05:41] VITALS: BP 98/48
[2016-07-01 06:52] LABS: PLATELET COUNT 103 x10^3mcL (130-400); RED CELL DISTRIBUTION WIDTH 15.4 % (11.5-14.5)
[2016-07-01 06:57] LABS: CALCIUM 8.2 mg/dL (8.5-10.1); CARBON DIOXIDE 29.7 mmol/L (21-32); CHLORIDE SERUM 109 mmol/L (98-107); CREATININE SERUM 1.8 mg/dL (0.6-1.0); GLUCOSE SERUM 96 mg/dL (74-106); MAGNESIUM 1.7 mg/dL (1.8-2.4); PHOSPHOROUS 4.7 mg/dL (2.5-4.9); POTASSIUM SERUM 4.3 mmol/L (3.5-5.1); SODIUM SERUM 143 mmol/L (136-145)
[2016-07-01 09:40] VITALS: BP 105/44
[2016-07-01 14:30] VITALS: BP 103/42
[2016-07-01] MEDS ORDERED: PROTONIX TR40 M1 PO (16:52)
[2016-07-01 17:00] VITALS: BP 106/46
[2016-07-01] MEDS ORDERED: MECLIZINE HYD12.5 MG PO (17:08)
== END 2016-07-01 19:26 | disposition home or self-care (01) | DRG 383 ==
LOC: ED 15:12 → DU 16:50 → MU 16:50 → DU 17:34 → MU 07-01 09:34
PROVIDERS: Family Medicine; Specialist; ADMIT Family Medicine
DX: K27.9 Peptic ulcer, site unspecified, unspecified as acute or chronic, without hemorrhage or perforation (principal); J69.0 Pneumonitis due to inhalation of food and vomit; J96.00 Acute respiratory failure, unspecified whether with hypoxia or hypercapnia; E43 Unspecified severe protein-calorie malnutrition; I50.43 Acute on chronic combined systolic (congestive) and diastolic (congestive) heart failure; N17.0 Acute kidney failure with tubular necrosis; I42.8 Other cardiomyopathies; E87.8 Other disorders of electrolyte and fluid balance, not elsewhere classified; D63.8 Anemia in other chronic diseases classified elsewhere; K74.60 Unspecified cirrhosis of liver; D69.59 Other secondary thrombocytopenia; E83.42 Hypomagnesemia; D72.819 Decreased white blood cell count, unspecified; I27.2 Other secondary pulmonary hypertension; Z68.24 Body mass index [BMI] 24.0-24.9, adult
CPT/HCPCS: 36600; 80307; 83880; 84439; 97110-GP; 97116-GP; 97530-GP; J1940; J1956; J2405; J3475; J3490; J7030; J7620; J8597; Q0092

== ENCOUNTER 2016-07-06 17:46 | Emergency (ER) | payer MEDICARE, OTHER ==
[~2016-07-06] VITALS: Ht 157.5 cm; Wt 61.7 kg
[~2016-07-06 17:46] MED LIST changes: +MECLIZINE HYD12.5 MG PO; +PROTONIX TR40 M1 PO
[2016-07-06 18:58] LABS: CARBON DIOXIDE 29.3 mmol/L (21-32); CHLORIDE SERUM 104 mmol/L (98-107); CREATININE SERUM 0.9 mg/dL (0.6-1.0); GLUCOSE SERUM 92 mg/dL (74-106); POTASSIUM SERUM 4.1 mmol/L (3.5-5.1); SODIUM SERUM 137 mmol/L (136-145)
[2016-07-06 19:03] LABS: ALKALINE PHOSPHATASE 83 U/L (46-116); ALT/SGPT 14 U/L (14-59); AST/SGOT 30 U/L (15-37); BILIRUBIN TOTAL 0.59 mg/dL (0.20-1.00); LIPASE 151 IU/L (73-393)
[2016-07-06 19:08] LABS: RED CELL DISTRIBUTION WIDTH 15.3 % (11.5-14.5)
[2016-07-06 19:09] LABS: PLATELET COUNT 63 x10^3mcL (130-400)
[2016-07-06 19:10] LABS: ALBUMIN 2.7 g/dL (3.4-5.0); TOTAL PROTEIN, SERUM 6.1 g/dL (6.4-8.2)
[2016-07-06 19:26] LABS: BAND NEUTROPHIL 0 % (0-10); BASOPHIL 0 % (0-2); SEGMENTED NEUTROPHILS 17 % (37-75)
[2016-07-06 19:28] LABS: MONOCYTE 18 % (0-7)
[2016-07-06 23:30] VITALS: BP 126/71
== END 2016-07-06 23:30 | disposition home or self-care (01) ==
LOC: ED 17:46
PROVIDERS: Emergency Medicine
DX: R10.13 Epigastric pain (principal); I10 Essential (primary) hypertension
CPT/HCPCS: J2405; J7030; Q0092; Q0162